=== PATIENT | female | born 1985 | race Caucasian/White ===

== ENCOUNTER 2016-09-24 01:58 | Inpatient (IN) | payer BC ==
[2016-09-24 05:15] LABS: Hematocrit 38 % (35-47); Hemoglobin 13.2 g/dl (12.0-16.0); Mean Corpuscular HGB Conc 35 g/dl (31-36); Mean Corpuscular Hemoglobin 31 pg (27-31); Mean Corpuscular Volume 89 fL (80-97); Mean Platelet Volume 9 um3 (7.4-10.4); Red Blood Count 4.31 10^6/ul (4.0-5.4); Red Cell Distribution Width 14 % (10.5-15); White Blood Count 9.2 10^3/ul (3.5-10.8)
[2016-09-24] MEDS ORDERED: OBEPIDURAL* 250 ML ONE (05:24)
[2016-09-24] MEDS ORDERED: fentaNYL* 50 MCG/ML 2 ML VIAL (100 MCG VIAL) ONE (05:29)
[2016-09-24] MEDS ORDERED: Phenylephrine IV* 40 MCG/ML 10 ML SYRINGE IV PUSH PRN ×2 (06:02)
[2016-09-24] MEDS ORDERED: Famotidine TAB* 20 MG PO PRN (06:02)
[2016-09-24] MEDS ORDERED: Sodium Citrate/Citric Acid* 15 ML UDC PO PRN (06:02)
[2016-09-24] MEDS ORDERED: OBEPIDURAL* 250 ML EPIDURAL SCH (07:00)
[2016-09-24] MEDS ORDERED: Acetaminophen TAB* 325 MG PO PRN (08:21)
[2016-09-24] MEDS ORDERED: RHO D Immune Globulin (HUMAN)* 300 MCG = 1,500 I.U. INJ IM ONE (08:21)
[2016-09-24] MEDS ORDERED: Dibucaine 1% 28.35 GM TUBE PR PRN (08:21)
[2016-09-24] MEDS ORDERED: oxyCODONE/Acetamin 5/325 MG* TAB PO PRN (08:21)
[2016-09-24] MEDS ORDERED: Glycerin ADULT SUPP PR PRN (08:21)
[2016-09-24] MEDS ORDERED: Witch Hazel PAD* JAR TOPICAL PRN (08:21)
[2016-09-24] MEDS: Docusate CAP* 100 MG PO SCH ×3 (11:13→19:29)
[2016-09-24] MEDS: Ibuprofen TAB* 600 MG PO PRN ×2 (12:15→19:29)
[2016-09-25] MEDS: Ibuprofen TAB* 600 MG PO PRN (04:06)
[2016-09-25 06:17] LABS: Hematocrit 37 % (35-47); Hemoglobin 12.7 g/dl (12.0-16.0); Mean Corpuscular HGB Conc 34 g/dl (31-36); Mean Corpuscular Hemoglobin 31 pg (27-31); Mean Corpuscular Volume 90 fL (80-97); Mean Platelet Volume 9 um3 (7.4-10.4); Red Blood Count 4.12 10^6/ul (4.0-5.4); Red Cell Distribution Width 14 % (10.5-15); White Blood Count 9.7 10^3/ul (3.5-10.8)
[2016-09-25 07:47] VITALS: BP 124/79
[2016-09-25] MEDS: Docusate CAP* 100 MG PO SCH (08:32)
[2016-09-25] MEDS ORDERED: Ferrous Gluconate TAB* 324 MG TAB PO SCH (09:00)
== END 2016-09-25 11:43 | disposition home or self-care (01) | DRG 560 ==
LOC: MCHOBOUT 01:58 → MCHOB 04:23
PROVIDERS: ADMIT Midwife; ATTEND Midwife
PROC: 10E0XZZ Delivery of Products of Conception, External Approach (ICD-10-PCS; principal; 2016-09-24)
DX: O26.893 Other specified pregnancy related conditions, third trimester (principal); G40.909 Epilepsy, unspecified, not intractable, without status epilepticus; O75.89 Other specified complications of labor and delivery; Z67.91 Unspecified blood type, Rh negative; Z3A.39 39 weeks gestation of pregnancy; Z37.0 Single live birth
CPT/HCPCS: 36415; 85025; 85027; 86850; 86900; 86901; A9270-GY; J3010

== ENCOUNTER 2018-02-04 06:27 | Day surgery (SDC) | payer BC ==
--- NOTE | 2018-01-31 14:58 | HP ---
PREOPERATIVE HISTORY AND PHYSICAL: DATE OF ADMISSION/SURGERY: 02/04/18 DATE OF OFFICE VISIT: 01/29/18 ATTENDING SURGEON: Dr. Rosanna Inman.* (DICTATED BY SOLOMON JENKINS) PROCEDURE: Right knee arthroscopic anterior cruciate ligament reconstruction with possible autograft, partial meniscectomy, and possible removal of hardware. CHIEF COMPLAINT: Right knee. HISTORY OF PRESENT ILLNESS: Luis is a 32-year-old female, who presents to the clinic for right knee pain ACL tear and a meniscus tear. She had a previous ACL reconstruction, then revision surgery with ; second surgery was with an allograft. She failed that and tore her ACL. She continues to have pain and instability; therefore, she has agreed to undergo a right knee arthroscopic anterior cruciate ligament reconstruction with possible autograft, partial meniscectomy, and possible removal of hardware with Dr. Inman on 02/04/18. PAST MEDICAL HISTORY: Asthma in childhood; epilepsy in childhood, she no longer has it; depression and anxiety. PAST SURGICAL HISTORY: Right ACL reconstruction in 2002, right revision ACL in 2004; tonsillectomy in 2008. The patient denies prior complications with anesthesia. She does get some nausea with anesthetic. MEDICATIONS: 1. Sertraline 25 mg one-half tab by mouth every day. 2. Loratadine 10 mg 1 by mouth a day for allergies as needed. ALLERGIES: LATEX but no known drug allergies. FAMILY HISTORY: Positive for heart disease in maternal grandmother, cancer, depression, anxiety, grandfather with DVT and was on Coumadin, when he was taken off Coumadin, he got a clot; otherwise, no family history of DVT or PE. SOCIAL HISTORY: She lives with her spouse. She works as an field service analyst. She denies tobacco use. She reports occasional alcohol consumption. She is right- hand dominant. REVIEW OF SYSTEMS: A 14-point review of systems was reviewed with the patient, positive for current complaint, otherwise negative. Denies numbness, tingling, fevers, chills, chest pain, shortness of breath, history of bleeding disorder, history of DVT or PE. PHYSICAL EXAMINATION GENERAL: A 32-year-old, well-developed, well-nourished female in no acute distress, alert and oriented x3. Appropriate mood and affect. Appropriate balance and coordination of the lower extremities. VITAL SIGNS: Height 67.5, weight 158, blood pressure 106/62, respiratory rate 18, temperature 97.4, BMI 24.4. HEENT: Normocephalic, atraumatic. PERRLA. Throat clear. NECK: Supple. PULMONARY: Lungs clear to auscultation bilaterally. No wheezing, rhonchi or rales. CARDIO: Regular rate and rhythm, S1, S2. No murmurs, gallops, rubs, no edema. ABDOMEN: Positive bowel sounds, soft, nontender. NEUROLOGIC: Alert and oriented x3. Cranial nerves grossly intact. Sensation intact to light touch. MUSCULOSKELETAL: Right lower extremity, quadriceps atrophy, well-healed incision, no effusion. Range of motion is 0 to 130. Pain with terminal flexion and extension. 2B to 3B Dimas. Negative posterior drawer. Stable varus and valgus stress. Calf, soft and nontender. Positive pivot shift. +2 DP pulse. +5/5 strength ankle dorsiflexion and plantar flexion. Sensation intact to light touch distally. DIAGNOSTIC STUDIES: MRI revealed absence of an ACL, medial and lateral meniscus tears, mild chondral changes to the femoral tunnels which were fixed with button and one button looks suspicious close to the intraarticular joint. IMPRESSION: Right knee anterior cruciate ligament tear. PLAN: The patient is scheduled to undergo right knee arthroscopic anterior cruciate ligament reconstruction with possible autograft, partial meniscectomy, and possible removal of hardware with Dr. Inman on 02/04/18. She will follow up 8 days postop for followup and suture removal. Percocet will be used for postop pain management and antibiotics to prevent infection since she has had prior surgeries. SOLOMON JENKINS [id number]/[facility] #: [id number] [facility]IE[facility] MEDICAL CENTERMyke
[~2018-02-04 06:27] MED LIST: Buffered Lidocaine 0.9% SYRIN* 5 ML/SYR SYRINGE INTRADERM ONE; Dexamethasone IV* 4 MG/ML 1 ML (4 MG) ONE; Dexamethasone TAB* 4 MG ONE; Dexamethasone TAB* 4 MG PO ONE; DiMENhydriNATE IV* 50 MG/ML VIAL IV PUSH PRN; Famotidine IV* 10 MG/ML 2 ML (20 mg) IV ONE; Famotidine IV* 10 MG/ML 2 ML (20 mg) ONE; Morphine INJ* 2 MG/ML 1 ML SYRINGE (TWO MG - NEW SYRINGE VERSION) IV PRN; Naloxone* 0.4 MG/ML 1 ML VIAL IV PRN; Ondansetron INJ* 2 MG/ML VIAL ONE; Ondansetron ODT TAB* 4 MG ONE; PROCHLORPERAZINE INJ 5 MG/ML 2 ML VIAL IV PRN; Scopolamine 1.5 mg* PATCH TRANSDERM PRN; fentaNYL* 50 MCG/ML 2 ML VIAL (100 MCG VIAL) IV PRN; oxyCODONE/Acetamin 5/325 MG* TAB PO PRN
[2018-02-04] MEDS ORDERED: ceFAZolin 2 GM in NS PREMIX(*) 2 GM/100 ML BAG IVPB ONE (06:34)
[2018-02-04] MEDS ORDERED: Lidocaine 1% MPF wEPI 200,000* 30 ML SDV ONE (07:02)
[2018-02-04] MEDS ORDERED: ROPIVACAINE 5 MG/ML 30 ML BTL (0.5%) ONE ×2 (07:03→07:22)
[2018-02-04] MEDS ORDERED: fentaNYL* 50 MCG/ML 2 ML VIAL (100 MCG VIAL) ONE (07:11)
[2018-02-04] MEDS ORDERED: KETAMINE HCL* 50 MG/ML 10 ML VIAL ONE (07:11)
[2018-02-04] MEDS ORDERED: Midazolam* 1 MG/ML 5 ML VIAL (5 MG) ONE (07:11)
[2018-02-04] MEDS ORDERED: Ketorolac INJ* 30 MG/ML 1 ML VIAL ONE (09:05)
[2018-02-04] MEDS ORDERED: Lidocaine 2% PF * 5 ML VIAL ONE (09:05)
[2018-02-04] MEDS ORDERED: Propofol* 10 MG/ML 20 ML BTL IV PUSH ONE (09:05)
[2018-02-04] MEDS ORDERED: PROCHLORPERAZINE INJ 5 MG/ML 2 ML VIAL ONE (09:05)
[2018-02-04] MEDS ORDERED: Morphine INJ* 10 MG/ML 1 ML CARPUJECT ONE (09:06)
[2018-02-04] MEDS ORDERED: DiMENhydriNATE IV* 50 MG/ML VIAL ONE (10:40)
[2018-02-04] MEDS ORDERED: Scopolamine 1.5 mg* PATCH ONE (10:41)
[2018-02-04 11:38] VITALS: BP 122/60
--- NOTE | 2018-02-04 21:53 | OP ---
CC: PCP, Hamlet Rhodes MD * DATE OF OPERATION: 02/04/18 - [facility] DATE OF : 87 SURGEON: Rosanna Inman MD EDUCATIONAL AIDE: SOLOMON Ontiveros. An porcelain buildup assistant was needed for the entirety of the case to help with positioning, retraction, and was utilized throughout all portions of the case. ANESTHESIOLOGIST: Dr. Sagastume. ANESTHESIA: General. PRE-OP DIAGNOSIS: Right knee failed anterior cruciate ligament reconstruction. POST-OP DIAGNOSIS: Right knee failed anterior cruciate ligament reconstruction with lateral meniscal tear and medial femoral condyle osteoarthritis. COMPLICATIONS: None. ESTIMATED BLOOD LOSS: Minimal. OPERATIVE PROCEDURES: 1. Right knee arthroscopy with revision ACL reconstruction using BTB autograft. 2. Partial lateral meniscectomy. 3. Removal of loose bodies x2. TOURNIQUET TIME: 18 minutes at 250 mmHg. INDICATIONS: Luis Antunez is a 32-year-old female who has had two previous ACL reconstructions done, one was with hamstring and one was with allograft. She has failed both of them and this is partially due to potentially technique. She has persistent instability and has pain. She recently reinjured it and has now catching and locking symptoms. The risks and benefits of surgery were discussed at length including but not limited to bleeding; infection; damage to nerves, vessels, surrounding structures; wound nonhealing; persistent pain; need for further surgery; scarring; stiffness; incomplete relief of symptoms; risk of anesthesia. DESCRIPTION OF PROCEDURE: The patient was greeted in the preoperative area by the attending surgeon. Correct extremity was marked, consent was confirmed. The patient was brought back to the operating suite where she was placed in the supine position on the operating table. She then underwent general anesthesia with endotracheal intubation after which she was appropriately positioned on the bed. A lateral post was positioned, a luna bag was placed to keep the patient at 90 degrees. An non-sterile tourniquet was placed high on the proximal thigh. The right leg was then prepped and draped in the usual sterile manner with chlorhexidine soap, scrub and alcohol wipe and a final prep with ChloraPrep. After appropriate surgical pause indicating site, side, procedure, and administration of antibiotics, the limb was exsanguinated and tourniquet inflated to 250 mmHg. A midline incision was made with a #15 blade. Soft tissue was carefully dissected to expose the paratenon which was protected layer for closure. The patellar tendon width was fairly small, was about 30 mm in width, the center 10 was then harvested for using a fresh #10 blade. The bone blocks were then harvested in the usual fashion with a sagittal saw. The graft was then loosened and then removed in its entirety and was prepared in the back table by the porcelain buildup assistant. The tourniquet was deflated for a total time of 18 minutes and the tendon was then closed with 0 Vicryl in a full thickness fashion to prevent any patellar baja. At this point, the arthroscopy portion was begun. An #11 blade was then used to incise the capsule and the scope was positioned into the joint. The scope was positioned in the suprapatellar pouch. There was no evidence of any hardware that was identified in the preoperative imaging but there were two small loose bodies in the medial gutter which were identified and they were about 5 mm in width. The anterior medial portal was made using 18-gauge for needle localization. For tunnel placement, the scope was positioned in the notch. For this portion, the capsule was incised and the probe was brought in. There was evidence of tearing of the vertically placed previous ACL. This had been ruptured as evidenced that it was allograft. The tunnel position was not optimal, the femoral tunnel was vertical and the tibial tunnel was far more medial than typical. The graft was then excised using biters and uvaldo. The PCL was intact. The previous tunnel prior to that was more higher up on the lateral wall but again it was too high. There was evidence of grade 2 and small areas of grade 3 changes, and about a 1 x 1 area about the weightbearing surface of the medial femoral condyle more laterally based than medially based. Remainder of the femoral condyle had grade 0 to 1 changes. The medial meniscus was intact, there was evidence of previous partial meniscectomy. There were no obvious loose flaps. The knee was positioned in the [id number] position and there was evidence of grade 1 and 2 changes to the lateral femoral condyle lateral plateau but there was a longitudinal split tear of the lateral meniscus that was the beginning of a buckle handle tear. This was determined to be in the white-white zone and was not repairable. Uvaldo and biters were then used to do a partial lateral meniscectomy to try to keep as many of the normal tissue, this removed approximately 50% or more of her meniscus. This extended all the way to the root and was also debrided back. At this point, the knee was then placed in 90 degrees and the remainder of the previous graft was removed. The lateral wall was prepared in the usual fashion with shaver and electrocautery device. There was no need for a notchplasty. The provisional ACL tunnel was then marked using a starting awl and checked by changing portals from the lateral to the medial portal and this was used as a reference point of where to place the actual ACL tunnel. The tip- to-tip guide was then used to identify the tibial tunnel. Again, I think the previous tibial tunnel was placed more medially. Therefore, this was placed more centrally based on landmarks of the anterior horns of the medial and lateral meniscus, the tibial spine as well as the PCL's reference point. It was placed with a tip-to-tip guide placed at 55 degrees. Once the guidewire was placed in the appropriate position, this was over drilled with a size 10 mm full bone reamer. Excess bone was removed. Care was taken to not take any of the soft tissue graft with it. The tunnel was then carefully rasped and all soft tissue was removed as well. Care was placed to prevent fluid egress. The knee was then placed in hyperflexion and using the Stern and Nephew straight guide, the Beath pin was then drilled using the previously marked reference point. The Beath pin was placed in the center of the new femoral tunnel. This was then passed through the lateral cortex as well as to the IT band and skin and found to be appropriately positioned. This was then drilled with a size 9 mm low profile reamer to a depth of about 25 mm. These were based on the graft dimensions which was 9 x 22 mm and the tibial tunnel was 10 x 30 mm based on the graft. The excess bone was removed. The tunnel was then notched. Images were obtained to make sure there was appropriate amount of back wall. A #2 Ethibond suture was then passed through the eyelet of the Beath pin and the graft was then brought to the table and passed under arthroscopic and direct visualization to be well seated in the femoral tunnel, this was then secured with a 7 x 25 mm SoftSilk screw which was placed with excellent purchase. The knee was then taken to full extension. There was no found to be no impingement of the graft and appropriate placement of the tunnel. The knee was then cycled approximately 20 times to remove any creep in the graft to make sure there was adequate fixation of the femoral tunnel and the knee was brought back to 90 degrees. The scope was positioned to make sure there were no changes or damage to the graft which there were not. The knee was then placed in approximately 20 to 30 degrees of flexion with tension on the tibial sutures and a Nitinol was placed and a size 9 x 25 mm screw was then used to secure the tibial block, this was also with posterior drawer pressure that was placed. The knee was then taken through range of motion, the kyle was assessed and found to be stable. The scope was positioned back to the joint, the graft was found to be in appropriate position. Final images were obtained. The wounds were copiously irrigated with sterile saline. The excess bone was placed in the patellar defect and then oversewn with 0 Vicryl. Any excess bone was then placed in the tibial defect. The wounds were copiously irrigated with sterile saline. The wound was closed in layers, first the paratenon was closed with 2- 0 Vicryl in a running fashion, the skin was closed in layers with 2-0 Vicryl and 3-0 Monocryl. Sterile dressings were applied. The knee was intra- articularly and superficially injected with 0.2% ropivacaine. A Cryocuff sterile dressing as well as hinge knee brace were applied, locked in extension. She was awoken from anesthesia and transferred to PACU in stable condition. POSTOPERATIVE PLAN: She will be weightbearing as tolerated, discharged on pain medications and antibiotics. DVT prophylaxis was considered, but deferred due to no previous personal or family history. I will see the patient back in approximately 6 to 8 days. She will start therapy this week. [id number]/[facility] #: [id number] JAYANT
[2018-02-07] MEDS ORDERED: Scopolamine PATCH Remove* 1 NOTE MISC PATCH OFF ONE (05:40)
== END 2018-02-04 11:28 | disposition home or self-care (01) ==
LOC: OREAST 06:27
PROVIDERS: ATTEND Orthopaedic Surgery
DX: S83.511D Sprain of anterior cruciate ligament of right knee, subsequent encounter (principal); S83.281A Other tear of lateral meniscus, current injury, right knee, initial encounter; X58.XXXD Exposure to other specified factors, subsequent encounter; Y92.9 Unspecified place or not applicable; F41.8 Other specified anxiety disorders
CPT/HCPCS: 81025; A9270-GY; C1713; J0690; J0780; J1100; J1240; J1885; J2001; J2250; J2270; J2704; J2795; J3010; J8540